=== PATIENT | male | born 1955 | race Caucasian/White ===

== ENCOUNTER 2025-06-17 08:09 | Day surgery (SDC) | payer OTHER, BC ==
--- NOTE | 2025-06-14 15:42 | RAD REPORT ---
EXAM: Chest Pa And Lat (2 Views) HISTORY: 70 years Male Pre-op pending neck mass excision COMPARISON: 07/02/2023 FINDINGS: LUNGS/PLEURA: The lungs are clear. No pleural effusions or pneumothorax. No pulmonary edema. CARDIAC/MEDIASTINUM: The cardiac silhouette is within normal limits. UPPER ABDOMEN: No significant abnormality. BONES: No acute abnormality. LINES/TUBES/OTHER: N/A IMPRESSION: No evidence of acute cardiopulmonary disease.
[2025-06-17] MEDS: Ringers Lactate 1,000 ML IV ONE (08:30)
[2025-06-17] MEDS ORDERED: Mastisol Adhesive Liq ONE (08:51)
[2025-06-17] MEDS ORDERED: POVIDONE-IODINE 5% EYE DROPS ONE (08:53)
[2025-06-17] MEDS ORDERED: FENTANYL CITR 100 MCG/2 ML ONE (10:06)
[2025-06-17] MEDS ORDERED: LIDOCAINE 2% MPF 5 ML VIAL ONE (10:06)
[2025-06-17] MEDS ORDERED: MIDAZOLAM HCL 2 MG/2 ML INJ ONE (10:06)
[2025-06-17] MEDS: CEFAZOLIN SODIUM 1 GM/VIAL ONE (10:46)
[2025-06-17] MEDS ORDERED: Phenylephrine HCl 10 MG/ML 1 ML VIAL ONE (11:22)
[2025-06-17] MEDS ORDERED: NS 0.9% VIAL 10 ML ONE ×2 (11:22→12:06)
[2025-06-17] MEDS ORDERED: KETOROLAC 30 MG/ML INJ ONE (11:25)
[2025-06-17] MEDS ORDERED: ONDANSETRON 4 MG/2 ML VIAL ONE (11:25)
--- NOTE | 2025-06-17 11:30 | P.BOP ---
Drain(s): Other (wet to dry)
[2025-06-17] MEDS ORDERED: NS 0.9% VIAL 20 ML ONE (11:44)
--- NOTE | 2025-06-17 12:45 | P.BOP ---
Preoperative diagnosis: Ulcerated left posterior neck mass Postoperative diagnosis: squamous cell carcinoma Primary procedure: wide excision with frozen section squamous cell carcinoma Secondary procedure: 6x5x.05 cm Estimated blood loss: <10cc Specimen: mass Findings: squamous cell carcinoma, margins free per Dr Lux Anesthesia: General Complications: None Drain(s): Other (wet to dry) Transferred to: Recovery Room Condition: Good
[2025-06-17] MEDS: HYDROMORPHONE HCL 1 MG/ML INJ ONE (12:49)
--- NOTE | 2025-06-17 13:29 | OP ---
Date of Procedure: 06/17/2025 Surgeon: Lalito Amaro MD Preoperative Diagnosis: Ulcerated left posterior neck mass. Postoperative Diagnosis: Ulcerated squamous cell carcinoma. Procedure: Wide excision with frozen section of a squamous cell carcinoma, there is an area left ope n about 6 x 5 x 0.5 cm. Estimated Blood Loss: Less than 10 cc. Specimen: Mass. Findings: Squamous cell carcinoma, margin free of tumor, per Dr. Lux. This excision is all the w ay down to muscle. Anesthesia: General plus local. Packing: Wet-to-dry. Indication: This is a case of a 70-year-old patient with a large ulcerated mass on left posterior ne ck area, wide excision with frozen section advised. The benefits, alternatives, and risks fully expl ained, which include, but not limited to, infection, bleeding, damage to adjacent structures, anesthe harman complication, nonhealing wound, MD, and even . He also understands this may not relieve any symptoms, he might need more than one surgical intervention, and he may require wound care. He unde rstood, signed a consent. Description Of Procedure: The area of concern was marked by me and the patient in the holding room. The patient was brought to the operating room, placed in supine position. Anesthesia was induced wi thout complication, and then the patient was placed in lateral decubitus position with proper protect ion. Posterior neck area was prepped and draped in a sterile fashion. Local anesthesia was applied after time-out. Then, we proceeded to delineate the area. We have to leave gross negative margins. It is a large area, between the mass and the margins we left, it is about 6 x 5 cm, at least 0.5 cm deep. The area was delineated and removed with the knife, marked with proper orientation. Because t he ulceration is deep, we have to go into deep margins into the muscle. So some of the skeletal musc le was removed with the specimen to obtain negative margins. This was sent to the pathologist who co nfirmed the lesion within the specimen and negative margins, so it is too large area and that need to be taken care of and developed a nice base before we skin graft that area. So the area was left to close by secondary intention with wet-to-dry. He is going to follow up with us. Hemostasis was obta ined before closure, also local anesthetic, and then patient was sent to recovery in stable condition . VINOD/JUSTIN Voice ID: [id number] Report ID: [id number]
--- NOTE | 2025-06-17 13:29 | DS ---
Diagnosis: Ulcerated squamous cell carcinoma, left posterior neck. Procedure: Wide excision of squamous cell carcinoma, left posterior neck. Condition: Stable. Disposition: Home. Activity: As tolerated. Discharge Instructions: Keep dressing intact until tomorrow where he is going [facility] 9[facility], so we can teach him dressing changes. Medication was previously called in the OR. VINOD/JUSTIN Voice ID: [id number] Report ID: [id number]
[2025-06-17 14:14] VITALS: BP 130/75; TEMP 97.1; O2SAT 95
== END 2025-06-17 13:40 | disposition home or self-care (01) ==
LOC: OR 08:09
PROVIDERS: ATTEND Surgery
PROC: 0JB50ZZ Excision of Left Neck Subcutaneous Tissue and Fascia, Open Approach (ICD-10-PCS; principal; 2025-06-17 10:00)
DX: C44.42 Squamous cell carcinoma of skin of scalp and neck (principal)
CPT/HCPCS: 11626; 93005; 88331; 88332; 88305; 71046; A4216 ×3; J2704; J2371; J2003; J2250; J3010; J1100; J1171; J2405; J7120; J0690